=== PATIENT | male | born 1990 | race Caucasian/White ===

== ENCOUNTER 2020-08-19 19:27 | Emergency (ER) | payer BC ==
[~2020-08-19] VITALS: Ht 180.3 cm; Wt 90.4 kg
[2020-08-19] MEDS ORDERED: TETanus/Pertussis (Acell)/Diphther VAC/PF (Tdap-Adult) 0.5ml syringe IMVAC ONE (21:05)
[2020-08-19] MEDS ORDERED: LIDOcaine 1% W/epiNEPHrine 1:200,000 10ml vial IJ ONE (21:05)
[2020-08-19 21:59] VITALS: BP 121/66
== END 2020-08-19 21:55 | disposition home or self-care (01) ==
LOC: ER 19:28
DX: S61.512A Laceration without foreign body of left wrist, initial encounter (principal); F17.200 Nicotine dependence, unspecified, uncomplicated; Z20.3 Contact with and (suspected) exposure to rabies; Z72.89 Other problems related to lifestyle; W19.XXXA Unspecified fall, initial encounter; Y93.89 Activity, other specified; Y92.89 Other specified places as the place of occurrence of the external cause; Y99.8 Other external cause status
CPT/HCPCS: 12002; 90471; 90715; 99283